=== PATIENT | male | born 1945 | race Two or more races ===

== ENCOUNTER 2020-03-18 05:20 | Day surgery (SDC) | payer OTHER ==
[~2020-03-18 05:20] MED LIST: ACETAMINOPHEN; ACID REDUCER20 M1 PO; ASA81 MG PO; ATENOLOL25 MG PO; B COMPLEX1 EAC1 PO; BENTYL10 MG/ML PO; ENALAPRIL MALEAT5 MG PO; GASTRINEX CAPSU1 CAP PO; LEVAQUIN500 MG PO; TENORMIN25 MG PO; TRAMADOL; TRICOR145 MG PO
== END 2020-03-18 14:16 | disposition home or self-care (01) ==
LOC: CIR.AMB 05:20
PROVIDERS: ATTEND Colon & Rectal Surgery
DX: K64.8 Other hemorrhoids (principal); K64.4 Residual hemorrhoidal skin tags

== ENCOUNTER 2020-03-20 10:48 | Emergency (ER) | payer OTHER ==
[~2020-03-20] VITALS: Ht 190.5 cm; Wt 77.1 kg
[2020-03-20] MEDS ORDERED: TRAMADOL HCL E100 M1 (11:06)
== END 2020-03-20 14:00 | disposition home or self-care (01) ==
LOC: ER 10:48
DX: R33.8 Other retention of urine (principal)

== ENCOUNTER 2020-03-23 13:26 | Outpatient (CLI) | payer OTHER ==
[~2020-03-23 13:26] MED LIST changes: +TRAMADOL HCL E100 M1
== END 2020-03-23 13:34 | disposition home or self-care (01) ==
LOC: LAB 13:26
PROVIDERS: ATTEND Colon & Rectal Surgery
DX: E11.9 Type 2 diabetes mellitus without complications (principal); K62.5 Hemorrhage of anus and rectum